=== PATIENT | male | born 1965 | race Caucasian/White ===

== ENCOUNTER → 2020-02-07 09:32 | Outpatient (CLI) | payer OTHER, SELFPAY ==
[2020-02-08 08:29] LABS: Covid-19 Nasal PCR Sendout UK NOT DETECTED
== END ==
PROVIDERS: Visit Provider Internal Medicine Gastroenterology
DX: Z03.818 Encounter for observation for suspected exposure to other biological agents ruled out (principal)
CPT/HCPCS: U0003

== ENCOUNTER 2020-02-09 07:54 | Day surgery (SDC) | payer OTHER, SELFPAY ==
--- NOTE | 2020-02-05 10:33 | SUR.PREOP ---
02/05/2020--PHONE CALL MADE TO PATIENT. PATIENT UNDERSTANDS THAT LAB WORK AND COVID TESTING NEEDS TO BE COMPLETED @ 0930 ON 02/07/2020. PATIENT UNDERSTANDS IF LAB WORK AND COVID-19 TESTS ARE NOT COMPLETED BY 12PM ON THAT DATE, THE SURGERY SCHEDULED WILL BE CANCELLED AND RESCHEDULED FOR ANOTHER TIME.
[2020-02-05 13:00] VITALS: BMI 27.9
[2020-02-09] VITALS (7 sets, daily range): BP systolic 102–118; BP diastolic 68–77; PULSE 59–82; RESP 16; TEMP 36.1–36.7; O2SAT 97–100
--- NOTE | 2020-02-09 08:31 | HMH.ANESCL ---
[facility] Anesthesia Checklist - Patient Identification Patient Identification: Arm Band, Verbal (Name & ) - Structural Data Admitted From: Home Planned Operative Procedure/s: egd Consent for Planned Operative Procedure(s) Verified: Yes Verified Documents: History and Physical - NPO Status Verified Time NPO: 00:00 - Chart Verification Results Verified: CBC, BMP - Additional verifications Patient : No Anesthesia Reactions: No Hx Blood Transfusions: No Blood Transfusion Reaction: No Cephalosporin Allergy: No Previous Colonoscopy: No - Cardiovascular Assessment Heart Sounds: S1 & S2 Pulse Strength: Baseline Pulse Rhythm: Regular Peripheral Edema: No - Airway Assessment C-Spine Mobility Assessed: Yes TMJ Mobility Assessed: Yes Dentition: Good Dentition - Neurological Assessment Level of Consciousness: Awake, Alert, Appropriate Hx Seizures: No Numbness or tingling in extremities: No - Anesthesia Plan Anesthesia Risk discussed: Yes Anesthesia Plan: Verified ASA Class: II Anesthesia Type: MAC [facility] History I have reviewed the patient's past medical history: Yes Medical History: Reports:: Hyperlipidemia, Hypertension Denies:: Cancer, Diabetes Mellitus Type 1, Diabetes Mellitus Type 2, Internal Pacemaker, MRSA, Seizures *Have you ever received a pneumonia vaccine?: No *Have you received a flu vaccine this season?: Yes Anesthesia experience/problems:: none Laterality Cases: Bilateral: Tonsillectomy Other Surgeries: No: Pacemaker Amputation: No Fractures: No - *Social History Educational Level: Attended College Alcohol Intake: never Substance Use Type: other *Occupational Status:: employed Housing: house Household Members: spouse *Travel in the last 8 weeks: None Family Hx:: Cancer, Diabetes, Heart Attack
--- NOTE | 2020-02-09 09:31 | HMH.PROC ---
[facility] Procedure Note Procedure Note:: Upper Endoscopy Procedure Report: Esophagogastroduodenoscopy with cold biopsies and TTS balloon dilation Endoscopost: Saman Lawson II, MD Referring Physician: Fausto Cerda MD Date of Procedure: February 09, 2020 Equipment: Olympus GIF 180 standard upper endoscope Sedation: MAC sedation Indications: Mr. Maki is a 54-year-old gentleman with dyspepsia and reflux. He has had globus sensation and dysphagia. He reports epigastric abdominal discomfort with associated heartburn, reflux, bloating and belching. He has moderate nausea and some early satiety. He has lost 8 to 10 pounds. He does have mostly regular bowel function but does get some intermittent diarrhea. He has had symptoms for 6 to 8 months. His dysphagia has worsened. This is to solids greater than liquids. He does have mostly regular bowel movements but has had some obstipation/incomplete bowel evacuation with excessive wiping. He did have an upper endoscopy 30 to 40 years ago. He has had a colonoscopy approximately 7 years ago and had colon polyps removed. He reports no mucus with his stools but does have occasional hemorrhoidal bleeding. He reports no family history of colitis, Crohn's disease or colon cancer. Procedure: Prior to the procedure, a history and physical exam was performed, and patient's medications and allergies were reviewed. The risks, benefits and alternatives of the sedation and procedure were discussed with the patient. All questions were answered and informed consent was obtained. The patient was brought to the procedure room. Patient identification and proposed procedure were verified by the physician and the nurse. The patient was placed in a left lateral decubitus position and the scope was passed under direct vision. Throughout the procedure, the patient's blood pressure, pulse, and oxygen saturations were monitored continuously. The upper GI endoscopy was accomplished without difficulty. The patient tolerated the procedure well. Findings: The scope was passed directly into the upper esophagus and advanced to the third portion of the duodenum. The post bulbar duodenum and duodenal bulb were normal with normal mucosa and conniventes. There was mild duodenal lymphoid stasis. Cold biopsies were taken from the post bulbar duodenum to rule out celiac disease. The scope was withdrawn through a normal duodenal bulb and pylorus into the stomach. There was moderate bile reflux with linear reactive gastropathy of the antrum and body of the stomach. The remainder of the antrum, body and fundus of the stomach were grossly normal. Upon retroflexion there was a very small 1 to 2 cm hiatal hernia. 2 biopsies were taken in the antrum and along the lesser curvature for histology to rule out gastritis and/or H pylori. The scope was then withdrawn into the esophagus. There was grade B reflux esophagitis and biopsies were taken of 2 small salmon-colored tongues of mucosa to rule out short segment Jiménez's esophagus. There was no stricturing or Schatzki's ring. There were strong tertiary contractions and evidence of moderate esophageal dysmotility. The entire esophagus was dilated to 60 Macedonian/20 mm with a TTS hydrostatic balloon. There was some resistance at the cricopharyngeus/upper esophageal sphincter. The remainder of the esophageal mucosa was normal. Impression: 1. Cricopharyngeal spasm status post dilation to 20 mm 2. Grade B reflux esophagitis with moderate esophageal dysmotility and very small 1 to 2 cm hiatal hernia 3. Bile reflux with linear reactive gastropathy Plan: I will follow-up the biopsies. I would continue PPI therapy (omeprazole). I will also discuss dietary measures, fiber bowel regimen and possibly promotility therapy. I would recommend colonoscopy based upon his age, prior history of adenomatous polyps and intermittent bleeding. I would also recommend this based upon clinical symptoms and findings
== END 2020-02-09 10:32 | disposition home or self-care (01) ==
PROVIDERS: PCP Family Medicine; Visit Provider Internal Medicine Gastroenterology
PROC: 0DJ08ZZ Inspection of Upper Intestinal Tract, Via Natural or Artificial Opening Endoscopic (ICD-10-PCS; CPT 43235; principal; 2020-02-09 09:00)
DX: R13.10 Dysphagia, unspecified (principal); K21.0 Gastro-esophageal reflux disease with esophagitis; K44.9 Diaphragmatic hernia without obstruction or gangrene; K22.4 Dyskinesia of esophagus
CPT/HCPCS: 43239; 43249; C1726

== ENCOUNTER → 2020-02-19 09:44 | Outpatient (CLI) | payer OTHER, SELFPAY ==
[2020-02-19 11:10] LABS: Coronavirus 19 IgG Antibody Negative (Negative); Coronavirus 19 IgM Antibody Negative (Negative)
== END ==
PROVIDERS: Visit Provider Internal Medicine Gastroenterology
DX: Z01.818 Encounter for other preprocedural examination (principal)
CPT/HCPCS: 36415; 86328

== ENCOUNTER 2020-02-20 08:47 | Day surgery (SDC) | payer OTHER, SELFPAY ==
[2020-02-17 16:55] VITALS: BMI 27.7
--- NOTE | 2020-02-18 14:15 | SUR.PREOP ---
02/18/2020--PHONE CALL MADE TO PATIENT. PATIENT UNDERSTANDS THAT LAB WORK AND COVID TESTING NEEDS TO BE COMPLETED BEFORE 10 ON 02/19/2020. PATIENT UNDERSTANDS IF LAB WORK AND COVID-19 TESTS ARE NOT COMPLETED BY 12PM ON THAT DATE, THE SURGERY SCHEDULED WILL BE CANCELLED AND RESCHEDULED FOR ANOTHER TIME.
[2020-02-20 09:26] VITALS: BP 111/59; PULSE 64; RESP 18; TEMP 36.2; O2SAT 98
[2020-02-20 10:36] VITALS: O2SAT 97
--- NOTE | 2020-02-20 11:07 | P.PCN_ITS ---
[facility] Procedure Note Procedure Note:: Colonoscopy Procedure Report: Colonoscopy with cold snare polypectomy Endoscopist: Saman Lawson II, MD Referring physician: Fausto Cerda MD Date of Procedure: February 20, 2020 Equipment: Olympus 180 variable stiffness pediatric colonoscope Sedation: MAC sedation Indication: Mr. Maki is a 54-year-old gentleman who was having dyspepsia and reflux. He had some nausea and fullness. His upper endoscopy did show reactive gastropathy. The patient was placed on dietary measures, fiber bowel regimen (M iraLAX plus Konsyl) and metoclopramide. The patient is clinically much improved with no recurrence. The patient is now here for follow-up screening/surveillance colonoscopy. His last colonoscopy was 10 years ago and he did have colon polyps. He reports no abdominal pain, weight loss, change in his bowel habits or rectal bleeding. He reports no family history of colon cancer. This is his third colonoscopy. Procedure: Prior to the procedure, a history and physical exam was performed, and patient's medications and allergies were reviewed. The risks, benefits and alternatives of the sedation and procedure were discussed with the patient. All questions were answered and informed consent was obtained. The patient was brought to the procedure room. Patient identification and proposed procedure were verified by the physician and the nurse. The patient was placed in a left lateral decubitus position and the scope was passed under direct vision. Throughout the procedure, the patient's blood pressure, pulse, and oxygen saturations were monitored continuously. The colonoscopy was accomplished without difficulty. The patient tolerated the procedure well. Findings: On digital rectal examination there was normal rectal tone. There were no external hemorrhoids. The prostate was 2-3+, smooth, soft, symmetric without nodules. The colonoscope was introduced through the anal canal to the rectum and advanced to the cecum. The ileocecal valve and appendiceal orifice were identified. The scope was advanced a short distance into the ileum which appeared grossly normal. The scope was then withdrawn into the colon. The cecum, ascending and transverse colon and mucosa were grossly normal. There was a diminutive 3 mm polyp in the descending colon removed via cold snare polypect matthew. There were a few scattered diverticuli throughout the descending and sigmoid colon (LEFT colon). The rectum itself was normal. Upon retroflexion within the rectum there were grade 1 internal hemorrhoids. The preparation was fair throughout with Nelson Preparation Score of 7 out of 9. The cecal time was 11 minutes. Impression: 1. Diminutive descending colon polyp (3 mm) 2. Mild left-sided diverticulosis 3. Grade 1 internal hemorrhoids Plan: I will follow up the polyp pathology and recommend repeat colonoscopy again in 7-10 years based upon the polyp histology. I would encourage continuation of the dietary measures, fiber bowel regimen and metoclopramide on a regular daily maintenance basis.
[2020-02-20 11:09] VITALS: BP 89/61; PULSE 58; RESP 18; TEMP 36.1; O2SAT 99
[2020-02-20 11:20] VITALS: BP 90/62; PULSE 57; RESP 16; O2SAT 100
[2020-02-20 11:35] VITALS: BP 110/68; PULSE 64; RESP 16; O2SAT 99
[2020-02-20 11:45] VITALS: BP 97/63; PULSE 61; RESP 15; O2SAT 100
== END 2020-02-20 11:45 | disposition home or self-care (01) ==
LOC: OUTP 08:49
PROVIDERS: PCP Family Medicine; Visit Provider Internal Medicine Gastroenterology
PROC: 0DJD8ZZ Inspection of Lower Intestinal Tract, Via Natural or Artificial Opening Endoscopic (ICD-10-PCS; CPT 45378; principal; 2020-02-20 10:00)
DX: K63.5 Polyp of colon; K57.30 Diverticulosis of large intestine without perforation or abscess without bleeding; K64.0 First degree hemorrhoids
CPT/HCPCS: 45385